=== PATIENT | female | born 1980 | race Caucasian/White ===

== ENCOUNTER → 2023-07-14 11:52 | Outpatient (REF) | payer MEDICARE, OTHER, SELFPAY ==
[2023-07-14 15:29] LABS: % Basophils 0.7 % (0-2); % Eosinophils 1.9 % (0-6); % Immature Granulocytes 0.3 % (0-0.5); % Monocytes 8.1 % (1.7-9.3); Absolute Eosinophils 0.1 10^3/uL (0-0.7); Absolute Lymphocytes 1.7 10^3/uL (1.2-3.4); Absolute Monocytes 0.5 10^3/uL (0.1-0.6); Absolute Neutrophils 3.6 10^3/uL (1.4-6.5); Hematocrit 38.5 % (37.0-47.0); Hemoglobin 13.2 g/dL (12.0-16.0); Mean Corp Hgb Conc. 34.3 g/dL (33.0-37.0); Mean Corpuscular Hgb 31.3 pg (27.0-31.0); Mean Corpuscular Volume 91.2 fL (81.0-99.0); Mean Platelet Volume 9.3 fL (7.4-10.4); Nucleated Red Blood Cells % 0 %; Platelet Count 315 10^3/uL (130-400); Red Blood Cell Count 4.22 10^6/uL (4.20-5.40); Red Cell Dist. Width 11.9 % (11.5-14.5); White Blood Cell Count 5.9 10^3/uL (4.8-10.8)
== END ==
LOC: HWLAB 11:52
PROVIDERS: ATTENDING PHYSICIAN Psychiatry & Neurology Psychiatry; FAMILY PHYSICIAN Family Medicine
DX: F20.0 Paranoid schizophrenia (principal)
CPT/HCPCS: 36415; 85025

== ENCOUNTER → 2023-08-11 11:27 | Outpatient (REF) | payer MEDICARE, OTHER, SELFPAY ==
[2023-08-11 15:59] LABS: % Basophils 0.9 % (0-2); % Immature Granulocytes 0.2 % (0-0.5); % Lymphocytes 35.3 % (20.5-51.1); % Monocytes 9.1 % (1.7-9.3); % Neutrophils 52.5 % (42.2-75.2); Absolute Eosinophils 0.1 10^3/uL (0-0.7); Absolute Lymphocytes 1.6 10^3/uL (1.2-3.4); Absolute Monocytes 0.4 10^3/uL (0.1-0.6); Absolute Neutrophils 2.4 10^3/uL (1.4-6.5); Hematocrit 37.5 % (37.0-47.0); Hemoglobin 13.1 g/dL (12.0-16.0); Mean Corp Hgb Conc. 34.9 g/dL (33.0-37.0); Mean Corpuscular Hgb 31.8 pg (27.0-31.0); Mean Platelet Volume 9.6 fL (7.4-10.4); Nucleated Red Blood Cells % 0 %; Platelet Count 269 10^3/uL (130-400); Red Blood Cell Count 4.12 10^6/uL (4.20-5.40); White Blood Cell Count 4.5 10^3/uL (4.8-10.8)
== END ==
LOC: HWLAB 11:27
PROVIDERS: ATTENDING PHYSICIAN Psychiatry & Neurology Psychiatry; FAMILY PHYSICIAN Family Medicine
DX: F20.0 Paranoid schizophrenia (principal)
CPT/HCPCS: 36415; 85025

== ENCOUNTER → 2023-09-08 11:08 | Outpatient (REF) | payer MEDICARE, OTHER, SELFPAY ==
[2023-09-08 12:55] LABS: % Basophils 0.7 % (0-2); % Eosinophils 0.7 % (0-6); % Immature Granulocytes 0.4 % (0-0.5); % Lymphocytes 15.5 % (20.5-51.1); % Monocytes 5.2 % (1.7-9.3); % Neutrophils 77.5 % (42.2-75.2); Absolute Basophils 0.1 10^3/uL (0-0.2); Absolute Eosinophils 0.1 10^3/uL (0-0.7); Absolute Lymphocytes 1.4 10^3/uL (1.2-3.4); Absolute Monocytes 0.5 10^3/uL (0.1-0.6); Absolute Neutrophils 7.1 10^3/uL (1.4-6.5); Hematocrit 36.5 % (37.0-47.0); Hemoglobin 12.8 g/dL (12.0-16.0); Mean Corp Hgb Conc. 35.1 g/dL (33.0-37.0); Mean Corpuscular Hgb 31.4 pg (27.0-31.0); Mean Corpuscular Volume 89.7 fL (81.0-99.0); Mean Platelet Volume 9.4 fL (7.4-10.4); Nucleated Red Blood Cells % 0 %; Platelet Count 277 10^3/uL (130-400); Red Blood Cell Count 4.07 10^6/uL (4.20-5.40); Red Cell Dist. Width 11.9 % (11.5-14.5); White Blood Cell Count 9.1 10^3/uL (4.8-10.8)
== END ==
LOC: HWLAB 11:08
PROVIDERS: ATTENDING PHYSICIAN Psychiatry & Neurology Psychiatry; FAMILY PHYSICIAN Family Medicine
DX: F20.0 Paranoid schizophrenia (principal)
CPT/HCPCS: 36415; 85025

== ENCOUNTER → 2023-10-06 12:17 | Outpatient (REF) | payer MEDICARE, OTHER, SELFPAY ==
[2023-10-06 16:19] LABS: % Basophils 0.7 % (0-2); % Immature Granulocytes 0.2 % (0-0.5); % Lymphocytes 19.8 % (20.5-51.1); % Neutrophils 73.3 % (42.2-75.2); Absolute Basophils 0.1 10^3/uL (0-0.2); Absolute Eosinophils 0.1 10^3/uL (0-0.7); Absolute Lymphocytes 1.8 10^3/uL (1.2-3.4); Absolute Monocytes 0.5 10^3/uL (0.1-0.6); Absolute Neutrophils 6.6 10^3/uL (1.4-6.5); Hematocrit 36.9 % (37.0-47.0); Mean Corp Hgb Conc. 35.2 g/dL (33.0-37.0); Mean Corpuscular Hgb 31.6 pg (27.0-31.0); Mean Corpuscular Volume 89.8 fL (81.0-99.0); Mean Platelet Volume 9.4 fL (7.4-10.4); Nucleated Red Blood Cells % 0 %; Platelet Count 295 10^3/uL (130-400); Red Blood Cell Count 4.11 10^6/uL (4.20-5.40)
== END ==
LOC: HWLAB 12:17
PROVIDERS: ATTENDING PHYSICIAN Psychiatry & Neurology Psychiatry; FAMILY PHYSICIAN Family Medicine
DX: F20.0 Paranoid schizophrenia (principal)
CPT/HCPCS: 36415; 85025

== ENCOUNTER → 2023-11-03 11:31 | Outpatient (REF) | payer MEDICARE, OTHER, SELFPAY ==
[2023-11-03 14:49] LABS: % Basophils 0.6 % (0-2); % Eosinophils 2.1 % (0-6); % Immature Granulocytes 0.2 % (0-0.5); % Lymphocytes 31.3 % (20.5-51.1); % Monocytes 7.2 % (1.7-9.3); % Neutrophils 58.6 % (42.2-75.2); Absolute Eosinophils 0.1 10^3/uL (0-0.7); Absolute Lymphocytes 1.6 10^3/uL (1.2-3.4); Absolute Monocytes 0.4 10^3/uL (0.1-0.6); Hematocrit 37.8 % (37.0-47.0); Hemoglobin 12.9 g/dL (12.0-16.0); Mean Corp Hgb Conc. 34.1 g/dL (33.0-37.0); Mean Corpuscular Hgb 31.5 pg (27.0-31.0); Mean Corpuscular Volume 92.4 fL (81.0-99.0); Mean Platelet Volume 9.6 fL (7.4-10.4); Nucleated Red Blood Cells % 0 %; Platelet Count 274 10^3/uL (130-400); Red Blood Cell Count 4.09 10^6/uL (4.20-5.40); Red Cell Dist. Width 11.9 % (11.5-14.5); White Blood Cell Count 5.2 10^3/uL (4.8-10.8)
== END ==
LOC: HWLAB 11:31
PROVIDERS: ATTENDING PHYSICIAN Psychiatry & Neurology Psychiatry; FAMILY PHYSICIAN Family Medicine
DX: F20.0 Paranoid schizophrenia (principal)
CPT/HCPCS: 36415; 85025

== ENCOUNTER → 2023-12-03 10:40 | Outpatient (REF) | payer MEDICARE, OTHER, SELFPAY ==
[2023-12-03 12:28] LABS: % Basophils 0.8 % (0-2); % Immature Granulocytes 0.3 % (0-0.5); % Lymphocytes 29.8 % (20.5-51.1); % Monocytes 8.1 % (1.7-9.3); Absolute Basophils 0.1 10^3/uL (0-0.2); Absolute Eosinophils 0.1 10^3/uL (0-0.7); Absolute Lymphocytes 1.8 10^3/uL (1.2-3.4); Absolute Monocytes 0.5 10^3/uL (0.1-0.6); Absolute Neutrophils 3.5 10^3/uL (1.4-6.5); Hematocrit 39.4 % (37.0-47.0); Hemoglobin 13.4 g/dL (12.0-16.0); Mean Corpuscular Hgb 31.4 pg (27.0-31.0); Mean Corpuscular Volume 92.3 fL (81.0-99.0); Mean Platelet Volume 9.6 fL (7.4-10.4); Nucleated Red Blood Cells % 0 %; Platelet Count 291 10^3/uL (130-400); Red Blood Cell Count 4.27 10^6/uL (4.20-5.40); Red Cell Dist. Width 11.9 % (11.5-14.5); White Blood Cell Count 5.9 10^3/uL (4.8-10.8)
== END ==
LOC: HWLAB 10:40
PROVIDERS: ATTENDING PHYSICIAN Psychiatry & Neurology Psychiatry; FAMILY PHYSICIAN Family Medicine
DX: F20.0 Paranoid schizophrenia (principal)
CPT/HCPCS: 36415; 85025

== ENCOUNTER → 2023-12-31 13:07 | Outpatient (REF) | payer MEDICARE, OTHER, SELFPAY ==
[2023-12-31 15:47] LABS: % Basophils 0.7 % (0-2); % Eosinophils 0.6 % (0-6); % Immature Granulocytes 0.4 % (0-0.5); % Lymphocytes 16.8 % (20.5-51.1); % Monocytes 5.6 % (1.7-9.3); % Neutrophils 75.9 % (42.2-75.2); Absolute Basophils 0.1 10^3/uL (0-0.2); Absolute Eosinophils 0.1 10^3/uL (0-0.7); Absolute Lymphocytes 1.8 10^3/uL (1.2-3.4); Absolute Monocytes 0.6 10^3/uL (0.1-0.6); Absolute Neutrophils 7.9 10^3/uL (1.4-6.5); Hematocrit 37.9 % (37.0-47.0); Hemoglobin 13.4 g/dL (12.0-16.0); Mean Corp Hgb Conc. 35.4 g/dL (33.0-37.0); Mean Corpuscular Hgb 31.5 pg (27.0-31.0); Mean Platelet Volume 9.9 fL (7.4-10.4); Nucleated Red Blood Cells % 0 %; Platelet Count 282 10^3/uL (130-400); Red Blood Cell Count 4.26 10^6/uL (4.20-5.40); Red Cell Dist. Width 11.9 % (11.5-14.5); White Blood Cell Count 10.4 10^3/uL (4.8-10.8)
== END ==
LOC: HWRAD 13:07
PROVIDERS: ATTENDING PHYSICIAN Psychiatry & Neurology Psychiatry; FAMILY PHYSICIAN Family Medicine
DX: F20.0 Paranoid schizophrenia (principal)
CPT/HCPCS: 36415; 85025

== ENCOUNTER → 2024-01-26 11:08 | Outpatient (REF) | payer MEDICARE, SELFPAY ==
[2024-01-26 15:54] LABS: % Basophils 0.5 % (0-2); % Eosinophils 0.6 % (0-6); % Immature Granulocytes 0.3 % (0-0.5); % Lymphocytes 15.7 % (20.5-51.1); % Monocytes 5.5 % (1.7-9.3); % Neutrophils 77.4 % (42.2-75.2); Absolute Basophils 0.1 10^3/uL (0-0.2); Absolute Eosinophils 0.1 10^3/uL (0-0.7); Absolute Lymphocytes 1.5 10^3/uL (1.2-3.4); Absolute Monocytes 0.5 10^3/uL (0.1-0.6); Absolute Neutrophils 7.4 10^3/uL (1.4-6.5); Hematocrit 35.6 % (37.0-47.0); Hemoglobin 12.7 g/dL (12.0-16.0); Mean Corp Hgb Conc. 35.7 g/dL (33.0-37.0); Mean Corpuscular Hgb 31.8 pg (27.0-31.0); Mean Corpuscular Volume 89.2 fL (81.0-99.0); Mean Platelet Volume 10.1 fL (7.4-10.4); Nucleated Red Blood Cells % 0 %; Platelet Count 279 10^3/uL (130-400); Red Blood Cell Count 3.99 10^6/uL (4.20-5.40); Red Cell Dist. Width 12.1 % (11.5-14.5); White Blood Cell Count 9.6 10^3/uL (4.8-10.8)
== END ==
LOC: HWLAB 11:08
PROVIDERS: ATTENDING PHYSICIAN Psychiatry & Neurology Psychiatry; FAMILY PHYSICIAN Family Medicine
DX: F20.1 Disorganized schizophrenia (principal)
CPT/HCPCS: 36415; 85025

== ENCOUNTER → 2024-02-23 11:49 | Outpatient (REF) | payer MEDICARE, SELFPAY ==
[2024-02-23 16:26] LABS: % Basophils 0.6 % (0-2); % Eosinophils 0.8 % (0-6); % Immature Granulocytes 0.3 % (0-0.5); % Lymphocytes 21.8 % (20.5-51.1); % Monocytes 6.7 % (1.7-9.3); % Neutrophils 69.8 % (42.2-75.2); Absolute Eosinophils 0.1 10^3/uL (0-0.7); Absolute Lymphocytes 1.6 10^3/uL (1.2-3.4); Absolute Monocytes 0.5 10^3/uL (0.1-0.6); Hematocrit 38.9 % (37.0-47.0); Hemoglobin 13.6 g/dL (12.0-16.0); Mean Corpuscular Hgb 32.2 pg (27.0-31.0); Mean Corpuscular Volume 92.2 fL (81.0-99.0); Mean Platelet Volume 9.9 fL (7.4-10.4); Nucleated Red Blood Cells % 0 %; Platelet Count 308 10^3/uL (130-400); Red Blood Cell Count 4.22 10^6/uL (4.20-5.40); White Blood Cell Count 7.1 10^3/uL (4.8-10.8)
== END ==
LOC: HWLAB 11:49
PROVIDERS: ATTENDING PHYSICIAN Psychiatry & Neurology Psychiatry; FAMILY PHYSICIAN Family Medicine
DX: F20.1 Disorganized schizophrenia (principal)
CPT/HCPCS: 36415; 85025

== ENCOUNTER → 2024-03-22 11:36 | Outpatient (REF) | payer MEDICARE, OTHER, SELFPAY ==
[2024-03-22 15:50] LABS: % Basophils 0.7 % (0-2); % Immature Granulocytes 0.3 % (0-0.5); % Lymphocytes 17.2 % (20.5-51.1); % Monocytes 4.5 % (1.7-9.3); % Neutrophils 76.3 % (42.2-75.2); Absolute Basophils 0.1 10^3/uL (0-0.2); Absolute Eosinophils 0.1 10^3/uL (0-0.7); Absolute Lymphocytes 1.6 10^3/uL (1.2-3.4); Absolute Monocytes 0.4 10^3/uL (0.1-0.6); Absolute Neutrophils 7.2 10^3/uL (1.4-6.5); Hematocrit 38.7 % (37.0-47.0); Hemoglobin 13.4 g/dL (12.0-16.0); Mean Corp Hgb Conc. 34.6 g/dL (33.0-37.0); Mean Corpuscular Hgb 30.8 pg (27.0-31.0); Nucleated Red Blood Cells % 0 %; Platelet Count 274 10^3/uL (130-400); Red Blood Cell Count 4.35 10^6/uL (4.20-5.40); Red Cell Dist. Width 12.1 % (11.5-14.5); White Blood Cell Count 9.4 10^3/uL (4.8-10.8)
== END ==
LOC: HWLAB 11:36
PROVIDERS: ATTENDING PHYSICIAN Psychiatry & Neurology Psychiatry; FAMILY PHYSICIAN Family Medicine
DX: F20.1 Disorganized schizophrenia (principal)
CPT/HCPCS: 36415; 85025

== ENCOUNTER → 2024-04-19 10:56 | Outpatient (REF) | payer MEDICARE, OTHER, SELFPAY ==
[2024-04-19 12:33] LABS: % Basophils 0.7 % (0-2); % Eosinophils 1.6 % (0-6); % Immature Granulocytes 0.3 % (0-0.5); % Lymphocytes 23.8 % (20.5-51.1); % Monocytes 7.9 % (1.7-9.3); % Neutrophils 65.7 % (42.2-75.2); Absolute Basophils 0.1 10^3/uL (0-0.2); Absolute Eosinophils 0.1 10^3/uL (0-0.7); Absolute Lymphocytes 1.8 10^3/uL (1.2-3.4); Absolute Monocytes 0.6 10^3/uL (0.1-0.6); Absolute Neutrophils 4.8 10^3/uL (1.4-6.5); Hematocrit 37.3 % (37.0-47.0); Hemoglobin 12.7 g/dL (12.0-16.0); Mean Corpuscular Hgb 30.7 pg (27.0-31.0); Mean Corpuscular Volume 90.1 fL (81.0-99.0); Mean Platelet Volume 9.4 fL (7.4-10.4); Nucleated Red Blood Cells % 0 %; Platelet Count 299 10^3/uL (130-400); Red Blood Cell Count 4.14 10^6/uL (4.20-5.40); Red Cell Dist. Width 12.2 % (11.5-14.5); White Blood Cell Count 7.4 10^3/uL (4.8-10.8)
== END ==
LOC: HWLAB 10:56
PROVIDERS: ATTENDING PHYSICIAN Psychiatry & Neurology Psychiatry; FAMILY PHYSICIAN Family Medicine
DX: F20.1 Disorganized schizophrenia (principal)
CPT/HCPCS: 36415; 85025

== ENCOUNTER → 2024-05-15 11:31 | Outpatient (REF) | payer MEDICARE, OTHER, SELFPAY ==
[2024-05-15 16:28] LABS: % Basophils 0.9 % (0-2); % Eosinophils 2.1 % (0-6); % Immature Granulocytes 0.4 % (0-0.5); % Lymphocytes 33.9 % (20.5-51.1); % Monocytes 9.5 % (1.7-9.3); % Neutrophils 53.2 % (42.2-75.2); Absolute Basophils 0.1 10^3/uL (0-0.2); Absolute Eosinophils 0.1 10^3/uL (0-0.7); Absolute Lymphocytes 1.9 10^3/uL (1.2-3.4); Absolute Monocytes 0.5 10^3/uL (0.1-0.6); Hematocrit 40.2 % (37.0-47.0); Hemoglobin 13.5 g/dL (12.0-16.0); Mean Corp Hgb Conc. 33.6 g/dL (33.0-37.0); Mean Corpuscular Hgb 31.5 pg (27.0-31.0); Mean Corpuscular Volume 93.9 fL (81.0-99.0); Mean Platelet Volume 9.8 fL (7.4-10.4); Nucleated Red Blood Cells % 0 %; Platelet Count 281 10^3/uL (130-400); Red Blood Cell Count 4.28 10^6/uL (4.20-5.40); Red Cell Dist. Width 12.4 % (11.5-14.5); White Blood Cell Count 5.7 10^3/uL (4.8-10.8)
== END ==
LOC: HWLAB 11:31
PROVIDERS: ATTENDING PHYSICIAN Psychiatry & Neurology Psychiatry; FAMILY PHYSICIAN Family Medicine
DX: F20.1 Disorganized schizophrenia (principal)
CPT/HCPCS: 36415; 85025

== ENCOUNTER → 2024-05-26 08:37 | Outpatient (REF) | payer MEDICARE, OTHER, SELFPAY ==
[2024-05-26 12:24] LABS: ALT (SGPT) 26 U/L (0-35); AST (SGOT) 26 U/L (14-36); Albumin 4.5 g/dl (3.5-5.0); Alkaline Phosphatase 58 U/L (38-126); Blood Urea Nitrogen 12 mg/dl (7-17); Calcium 9.4 mg/dl (8.4-10.2); Carbon Dioxide 26 mmol/L (22-30); Chloride 104 mmol/L (98-107); Glucose 94 mg/dl (70-99); HDL Cholesterol 87 mg/dl; LDL Cholesterol, Calculated 107 mg/dl; Potassium 4.3 mmol/L (3.5-5.1); Sodium 140 mmol/L (135-145); Total Bilirubin 0.5 mg/dl (0.2-1.3); Total Cholesterol 209 mg/dl (50-199); Total Protein 7.5 g/dl (6.3-8.2); Triglyceride 76 mg/dl (10-149); Very Low Density Lipoprotein 15 mg/dl (0-30); eGFR > 60.00
[2024-05-26 12:51] LABS: TSH 0.96 uIU/ml (0.47-4.68)
== END ==
LOC: HWLAB 08:37
PROVIDERS: ATTENDING PHYSICIAN Family Medicine
DX: F20.9 Schizophrenia, unspecified (principal); J45.20 Mild intermittent asthma, uncomplicated; Z13.29 Encounter for screening for other suspected endocrine disorder; Z79.899 Other long term (current) drug therapy; J30.2 Other seasonal allergic rhinitis; L70.9 Acne, unspecified
CPT/HCPCS: 36415; 80053; 80061; 84443

== ENCOUNTER → 2024-06-01 10:29 | Outpatient (REF) | payer MEDICARE, OTHER, SELFPAY | LOC: HWWDC 10:29 | PROVIDERS: ATTENDING PHYSICIAN Obstetrics & Gynecology Gynecology; FAMILY PHYSICIAN Family Medicine | DX: Z12.31 Encounter for screening mammogram for malignant neoplasm of breast (principal) | CPT/HCPCS: 77063; 77067 ==

== ENCOUNTER → 2024-06-12 11:32 | Outpatient (REF) | payer MEDICARE, OTHER, SELFPAY ==
[2024-06-12 15:59] LABS: % Basophils 0.5 % (0-2); % Eosinophils 1.2 % (0-6); % Immature Granulocytes 0.4 % (0-0.5); % Lymphocytes 18.2 % (20.5-51.1); % Monocytes 7.1 % (1.7-9.3); % Neutrophils 72.6 % (42.2-75.2); Absolute Basophils 0.1 10^3/uL (0-0.2); Absolute Eosinophils 0.1 10^3/uL (0-0.7); Absolute Lymphocytes 1.8 10^3/uL (1.2-3.4); Absolute Monocytes 0.7 10^3/uL (0.1-0.6); Absolute Neutrophils 7.2 10^3/uL (1.4-6.5); Hematocrit 38.8 % (37.0-47.0); Mean Corp Hgb Conc. 33.5 g/dL (33.0-37.0); Mean Corpuscular Hgb 31.7 pg (27.0-31.0); Mean Corpuscular Volume 94.6 fL (81.0-99.0); Mean Platelet Volume 9.4 fL (7.4-10.4); Nucleated Red Blood Cells % 0 %; Platelet Count 275 10^3/uL (130-400); White Blood Cell Count 9.9 10^3/uL (4.8-10.8)
== END ==
LOC: HWLAB 11:32
PROVIDERS: ATTENDING PHYSICIAN Psychiatry & Neurology Psychiatry; FAMILY PHYSICIAN Family Medicine
DX: F20.1 Disorganized schizophrenia (principal)
CPT/HCPCS: 36415; 85025

== ENCOUNTER → 2024-07-10 12:29 | Outpatient (REF) | payer MEDICARE, OTHER, SELFPAY ==
[2024-07-10 15:16] LABS: % Basophils 0.6 % (0-2); % Eosinophils 0.8 % (0-6); % Immature Granulocytes 0.2 % (0-0.5); % Monocytes 6.4 % (1.7-9.3); Absolute Basophils 0.1 10^3/uL (0-0.2); Absolute Eosinophils 0.1 10^3/uL (0-0.7); Absolute Lymphocytes 1.7 10^3/uL (1.2-3.4); Absolute Monocytes 0.6 10^3/uL (0.1-0.6); Absolute Neutrophils 6.2 10^3/uL (1.4-6.5); Hematocrit 39.6 % (37.0-47.0); Hemoglobin 13.6 g/dL (12.0-16.0); Mean Corp Hgb Conc. 34.3 g/dL (33.0-37.0); Mean Corpuscular Hgb 32.1 pg (27.0-31.0); Mean Corpuscular Volume 93.4 fL (81.0-99.0); Mean Platelet Volume 9.6 fL (7.4-10.4); Nucleated Red Blood Cells % 0 %; Platelet Count 267 10^3/uL (130-400); Red Blood Cell Count 4.24 10^6/uL (4.20-5.40); Red Cell Dist. Width 11.9 % (11.5-14.5); White Blood Cell Count 8.7 10^3/uL (4.8-10.8)
== END ==
LOC: HWLAB 12:29
PROVIDERS: ATTENDING PHYSICIAN Psychiatry & Neurology Psychiatry; FAMILY PHYSICIAN Family Medicine
DX: F20.1 Disorganized schizophrenia (principal)
CPT/HCPCS: 36415; 85025

== ENCOUNTER → 2024-08-07 11:36 | Outpatient (REF) | payer MEDICARE, OTHER, SELFPAY ==
[2024-08-07 15:22] LABS: % Basophils 0.6 % (0-2); % Eosinophils 0.9 % (0-6); % Immature Granulocytes 0.2 % (0-0.5); % Neutrophils 72.3 % (42.2-75.2); Absolute Basophils 0.1 10^3/uL (0-0.2); Absolute Eosinophils 0.1 10^3/uL (0-0.7); Absolute Lymphocytes 1.7 10^3/uL (1.2-3.4); Absolute Monocytes 0.5 10^3/uL (0.1-0.6); Absolute Neutrophils 6.2 10^3/uL (1.4-6.5); Hematocrit 38.6 % (37.0-47.0); Hemoglobin 13.3 g/dL (12.0-16.0); Mean Corp Hgb Conc. 34.5 g/dL (33.0-37.0); Mean Corpuscular Hgb 31.5 pg (27.0-31.0); Mean Corpuscular Volume 91.5 fL (81.0-99.0); Mean Platelet Volume 9.2 fL (7.4-10.4); Nucleated Red Blood Cells % 0 %; Platelet Count 258 10^3/uL (130-400); Red Blood Cell Count 4.22 10^6/uL (4.20-5.40); Red Cell Dist. Width 11.9 % (11.5-14.5); White Blood Cell Count 8.5 10^3/uL (4.8-10.8)
== END ==
LOC: HWLAB 11:36
PROVIDERS: ATTENDING PHYSICIAN Psychiatry & Neurology Psychiatry; FAMILY PHYSICIAN Family Medicine
DX: F20.0 Paranoid schizophrenia (principal)
CPT/HCPCS: 36415; 85025

== ENCOUNTER → 2024-09-04 11:37 | Outpatient (REF) | payer MEDICARE, OTHER, SELFPAY ==
[2024-09-04 17:24] LABS: % Basophils 0.9 % (0-2); % Eosinophils 1.2 % (0-6); % Immature Granulocytes 0.2 % (0-0.5); % Lymphocytes 27.2 % (20.5-51.1); % Monocytes 7.3 % (1.7-9.3); % Neutrophils 63.2 % (42.2-75.2); Absolute Basophils 0.1 10^3/uL (0-0.2); Absolute Eosinophils 0.1 10^3/uL (0-0.7); Absolute Lymphocytes 1.6 10^3/uL (1.2-3.4); Absolute Monocytes 0.4 10^3/uL (0.1-0.6); Absolute Neutrophils 3.7 10^3/uL (1.4-6.5); Hematocrit 40.6 % (37.0-47.0); Hemoglobin 13.8 g/dL (12.0-16.0); Mean Corpuscular Hgb 31.2 pg (27.0-31.0); Mean Corpuscular Volume 91.9 fL (81.0-99.0); Mean Platelet Volume 9.9 fL (7.4-10.4); Nucleated Red Blood Cells % 0 %; Platelet Count 277 10^3/uL (130-400); Red Blood Cell Count 4.42 10^6/uL (4.20-5.40); Red Cell Dist. Width 11.9 % (11.5-14.5); White Blood Cell Count 5.9 10^3/uL (4.8-10.8)
== END ==
LOC: HWLAB 11:37
PROVIDERS: ATTENDING PHYSICIAN Psychiatry & Neurology Psychiatry; FAMILY PHYSICIAN Family Medicine
DX: F20.0 Paranoid schizophrenia (principal)
CPT/HCPCS: 36415; 85025

== ENCOUNTER → 2024-10-02 12:06 | Outpatient (REF) | payer MEDICARE, OTHER, SELFPAY ==
[2024-10-02 16:55] LABS: % Basophils 0.5 % (0-2); % Eosinophils 0.9 % (0-6); % Immature Granulocytes 0.4 % (0-0.5); % Lymphocytes 16.1 % (20.5-51.1); % Monocytes 6.3 % (1.7-9.3); % Neutrophils 75.8 % (42.2-75.2); Absolute Basophils 0.1 10^3/uL (0-0.2); Absolute Eosinophils 0.1 10^3/uL (0-0.7); Absolute Lymphocytes 1.7 10^3/uL (1.2-3.4); Absolute Monocytes 0.7 10^3/uL (0.1-0.6); Hemoglobin 13.4 g/dL (12.0-16.0); Mean Corp Hgb Conc. 34.4 g/dL (33.0-37.0); Mean Corpuscular Hgb 31.8 pg (27.0-31.0); Mean Corpuscular Volume 92.4 fL (81.0-99.0); Nucleated Red Blood Cells % 0 %; Platelet Count 301 10^3/uL (130-400); Red Blood Cell Count 4.22 10^6/uL (4.20-5.40); Red Cell Dist. Width 12.3 % (11.5-14.5); White Blood Cell Count 10.6 10^3/uL (4.8-10.8)
== END ==
LOC: HWLAB 12:06
PROVIDERS: ATTENDING PHYSICIAN Psychiatry & Neurology Psychiatry; FAMILY PHYSICIAN Family Medicine
DX: F20.0 Paranoid schizophrenia (principal)
CPT/HCPCS: 36415; 85025

== ENCOUNTER → 2024-11-27 11:02 | Outpatient (REF) | payer MEDICARE, OTHER, SELFPAY ==
[2024-11-27 16:04] LABS: % Eosinophils 2.1 % (0-6); % Immature Granulocytes 0.2 % (0-0.5); % Lymphocytes 31.6 % (20.5-51.1); % Neutrophils 57.1 % (42.2-75.2); Absolute Basophils 0.1 10^3/uL (0-0.2); Absolute Eosinophils 0.1 10^3/uL (0-0.7); Absolute Lymphocytes 1.5 10^3/uL (1.2-3.4); Absolute Monocytes 0.4 10^3/uL (0.1-0.6); Absolute Neutrophils 2.8 10^3/uL (1.4-6.5); Hematocrit 38.7 % (37.0-47.0); Hemoglobin 13.3 g/dL (12.0-16.0); Mean Corp Hgb Conc. 34.4 g/dL (33.0-37.0); Mean Corpuscular Hgb 31.3 pg (27.0-31.0); Mean Corpuscular Volume 91.1 fL (81.0-99.0); Mean Platelet Volume 9.8 fL (7.4-10.4); Nucleated Red Blood Cells % 0 %; Platelet Count 280 10^3/uL (130-400); Red Blood Cell Count 4.25 10^6/uL (4.20-5.40); White Blood Cell Count 4.9 10^3/uL (4.8-10.8)
== END ==
LOC: HWLAB 11:02
PROVIDERS: ATTENDING PHYSICIAN Psychiatry & Neurology Psychiatry; FAMILY PHYSICIAN Family Medicine
DX: F20.0 Paranoid schizophrenia (principal)
CPT/HCPCS: 36415; 85025

== ENCOUNTER → 2024-12-18 06:56 | Outpatient (REF) | payer MEDICARE, OTHER, SELFPAY ==
[2024-12-18 10:04] LABS: Very Low Density Lipoprotein 18 mg/dl (0-30)
[2024-12-18 10:15] LABS: HDL Cholesterol 63 mg/dl; LDL Cholesterol, Calculated 73 mg/dl
== END ==
LOC: HWLAB 06:56
PROVIDERS: ATTENDING PHYSICIAN Family Medicine
DX: E78.2 Mixed hyperlipidemia (principal)
CPT/HCPCS: 36415; 80061

== ENCOUNTER → 2025-01-22 11:08 | Outpatient (REF) | payer MEDICARE, OTHER, SELFPAY ==
[2025-01-22 16:09] LABS: Hematocrit 40.6 % (37.0-47.0); Hemoglobin 13.4 g/dL (12.0-16.0); Mean Corp Hgb Conc. 33.0 g/dL (33.0-37.0); Mean Corpuscular Volume 93.5 fL (81.0-99.0); Nucleated Red Blood Cells % 0 %; Platelet Count 283 10^3/uL (130-400); Red Cell Dist. Width 12.1 % (11.5-14.5)
== END ==
LOC: HWLAB 11:08
PROVIDERS: ATTENDING PHYSICIAN Psychiatry & Neurology Psychiatry; FAMILY PHYSICIAN Family Medicine
DX: F20.0 Paranoid schizophrenia (principal)
CPT/HCPCS: 36415; 85025

== ENCOUNTER → 2025-03-16 12:21 | Outpatient (REF) | payer MEDICARE, OTHER, SELFPAY ==
[2025-03-16 16:41] LABS: Hematocrit 38.3 % (37.0-47.0); Hemoglobin 13.0 g/dL (12.0-16.0); Mean Corp Hgb Conc. 33.9 g/dL (33.0-37.0); Mean Corpuscular Volume 91.2 fL (81.0-99.0); Nucleated Red Blood Cells % 0 %; Platelet Count 267 10^3/uL (130-400); Red Cell Dist. Width 12.1 % (11.5-14.5)
== END ==
LOC: HWLAB 12:21
PROVIDERS: ATTENDING PHYSICIAN Psychiatry & Neurology Psychiatry; FAMILY PHYSICIAN Family Medicine
DX: F20.0 Paranoid schizophrenia (principal)
CPT/HCPCS: 36415; 85025

== ENCOUNTER → 2025-05-07 12:09 | Outpatient (REF) | payer MEDICARE, OTHER, SELFPAY ==
[2025-05-07 13:04] LABS: Hematocrit 41.5 % (37.0-47.0); Hemoglobin 14.0 g/dL (12.0-16.0); Mean Corp Hgb Conc. 33.7 g/dL (33.0-37.0); Mean Corpuscular Volume 92.6 fL (81.0-99.0); Nucleated Red Blood Cells % 0 %; Platelet Count 255 10^3/uL (130-400); Red Cell Dist. Width 12.1 % (11.5-14.5)
== END ==
LOC: REG 12:09
PROVIDERS: ATTENDING PHYSICIAN Psychiatry & Neurology Psychiatry; FAMILY PHYSICIAN Family Medicine
DX: F20.0 Paranoid schizophrenia (principal)
CPT/HCPCS: 36415; 85025